=== PATIENT | male | born 1960 | race Caucasian/White ===

== ENCOUNTER 2020-06-01 17:47 | Emergency (ER) | payer SELFPAY ==
[2020-06-01 17:53] VITALS: BP 201/94; PULSE 96; RESP 14; TEMP 36.6; O2SAT 97; BMI 40.3
--- NOTE | 2020-06-01 19:01 | ED_ITS ---
HPI - Neuro Symptoms/Deficit General: Chief Complaint: Neuro Symptoms/Deficit Stated Complaint: FACIAL DROOPING Time Seen by Provider: 06/01/20 18:58 Source: patient Mode of arrival: ambulatory Limitations: no limitations History of Present Illness: HPI Narrative: 60-year-old male states he noticed facial drooping to the left side of his face roughly 3 hours ago. 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 He states he is unable to fully shut his left eye. He denies any weakness. He has no other neuro deficits. Onset (ago): hour(s) Associated symptoms: Deny chest pain, headache(s), nausea or vomiting Review of Systems Const: Denies: fever(s), chills, body aches or change in appetite Eyes: Denies: blurry vision or eye discomfort ENMT: Denies: throat pain or dental pain Card: Denies: chest pain Resp: Denies: dyspnea GI: Denies: abdominal pain, nausea, vomiting or diarrhea : Denies: dysuria Musc: Denies: neck pain or back pain Skin/Breast: Denies: rash Neuro: Denies: headache(s) Psych: Denies: depression Braulio/Lymph: Denies: easy bruising All/Imm: Denies: urticaria PFSH ED PFSH: Surgical History (Updated 11/02/19 @ 14:38 by IMELDA Cruz) Hx of tonsillectomy Family History Brother Hypertension Social History Smoking and tobacco status: never smoked Physical Exam Neuro: OTHER: 5 out of 5 strength in all 5 extremities. No visual deficits. 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 Course Vital Signs: Vital signs: Vital Signs Temperature 97.9 F 06/01/20 17:53 Pulse Rate 96 06/01/20 17:53 Respiratory Rate 14 06/01/20 17:53 Blood Pressure 201/94 06/01/20 17:53 Pulse Oximetry 97 06/01/20 17:53 MDM - Neuro Symptoms/Deficit MDM Narrative: Medical decision making narrative: Patient presents here with Jackson's palsy. Will start on steroids. Patient has no signs of a stroke. Patient is stable for discharge and return if worsening. Discharge Plan Discharge Patient Disposition: Home Clinical Impression: Jackson's palsy Condition: Stable Prescriptions: New prednisone 50 mg tablet 50 mg PO DAILY Qty: 5 RF: 0 Discharge Orders: Discharge Order (Routine); Ordered 06/01/20 Ordered By: Esthela Zarate Referrals: Elinor Whyte FNP [Primary Care Provider] - 1-3 days Discharge Diet: Advance as tolerated Discharge Activity: Resume usual activity Patient Instructions: Jackson Palsy (ED) Coding Level of Care Code ED [employer] for Katelyn Paniagua
[2020-06-01] MEDS: predniSONE 20 mg Tablet 60 MG PO (19:30)
[2020-06-01 19:33] VITALS: BP 158/90; PULSE 76; RESP 18; O2SAT 98
== END 2020-06-01 19:34 | disposition home or self-care (01) ==
PROVIDERS: Emergency Provider Emergency Medicine; PCP Nurse Practitioner Family
DX: G51.0 Bell's palsy (principal)
CPT/HCPCS: 12345; 99281; 99283; J7512

== ENCOUNTER → 2023-11-15 07:43 | Outpatient (BNVA) | payer BC, SELFPAY | PROVIDERS: PCP Nurse Practitioner Family; Visit Provider Nurse Practitioner Family | DX: J02.9 Acute pharyngitis, unspecified (principal); J35.1 Hypertrophy of tonsils; H66.003 Acute suppurative otitis media without spontaneous rupture of ear drum, bilateral | CPT/HCPCS: 87071; 87880 ==